=== PATIENT | female | born 1995 | race African-American/Black ===

== ENCOUNTER 2017-11-03 09:01 | Emergency (ER) | payer OTHER ==
[~2017-11-03] VITALS: Ht 167.6 cm; Wt 93.8 kg
[2017-11-03 09:39] LABS: CLARITY URINE CLOUDY (CLEAR); COLOR URINE DARK YELLOW (YELLOW); KETONES URINE NEGATIVE (NEGATIVE); LEUKOCYTE ESTERASE URINE 2+ (NEGATIVE); NITRITE URINE NEGATIVE (NEGATIVE); OCCULT BLOOD URINE 1+ (NEGATIVE); PROTEIN URINE TRACE (NEGATIVE); SPECIFIC GRAVITY URINE 1.031 (1.005-1.030)
[2017-11-03] MEDS ORDERED: KETOROLAC 30MG/ML VIAL IV STA (09:57)
[2017-11-03] MEDS ORDERED: SODIUM CHLORIDE 0.9% 1,000 ML IV ONE (09:57)
[2017-11-03 10:33] LABS: HEMATOCRIT. 33.8 % (36.0-48.0); MEAN CORPUSCULAR HEMOGLOBIN 24.1 pg (28.0-32.0); MEAN CORPUSCULAR VOLUME 73.8 fL (81.0-99.0); MEAN PLATELET VOLUME 8.5 fl (7.4-10.4); PLATELET 213 x1000/uL (130-400); RED BLOOD CELL COUNT 4.58 mill/uL (4.2-5.4); RED CELL DISTRIBUTION WIDTH 16.3 % (11.6-14.6)
[2017-11-03 10:38] LABS: CHLORIDE 104 mEq/L (98-107); INR 1.1; PROTHROMBIN TIME 11.6 sec (9.4-11.6)
[2017-11-03 11:03] LABS: PLATELET ESTIMATE NORMAL
[2017-11-03 14:40] VITALS: BP 110/67
== END 2017-11-03 14:43 | disposition home or self-care (01) ==
LOC: ER 09:01
DX: N39.0 Urinary tract infection, site not specified (principal); N83.209 Unspecified ovarian cyst, unspecified side; K21.9 Gastro-esophageal reflux disease without esophagitis; K59.00 Constipation, unspecified
CPT/HCPCS: 36415; 74176; 80053; 81003; 81025; 83690; 85025; 85610; 87086; 96361; 96374; 99285; J1885; J7030; Z7610

== ENCOUNTER 2018-07-02 15:36 | Emergency (ER) | payer OTHER ==
[~2018-07-02] VITALS: Ht 167.6 cm; Wt 97.0 kg
[2018-07-02] MEDS ORDERED: IBUPROFEN 600MG TABLET PO ONE (18:00)
[2018-07-02] MEDS ORDERED: ONDANSETRON 4MG ODT PO ONE (18:00)
[2018-07-02 20:22] VITALS: BP 117/66
== END 2018-07-02 20:25 | disposition home or self-care (01) ==
LOC: ER 15:36
DX: B34.9 Viral infection, unspecified (principal); R11.10 Vomiting, unspecified
CPT/HCPCS: 87804; 99283; Q0162

== ENCOUNTER 2018-11-23 07:20 | Emergency (ER) | payer OTHER ==
[~2018-11-23] VITALS: Ht 167.6 cm; Wt 100.0 kg
[2018-11-23] MEDS ORDERED: IBUPROFEN 600MG TABLET PO ONE (08:30)
[2018-11-23 10:42] VITALS: BP 125/75
== END 2018-11-23 10:46 | disposition home or self-care (01) ==
LOC: ER 07:58
DX: S06.0X1A Concussion with loss of consciousness of 30 minutes or less, initial encounter (principal); W10.8XXA Fall (on) (from) other stairs and steps, initial encounter; Y93.89 Activity, other specified; Y92.018 Other place in single-family (private) house as the place of occurrence of the external cause
CPT/HCPCS: 81025; 99284

== ENCOUNTER 2019-01-19 14:22 | Emergency (ER) | payer OTHER ==
[~2019-01-19] VITALS: Ht 162.6 cm; Wt 100.0 kg
[2019-01-19] MEDS ORDERED: SODIUM CHLORIDE 0.9% 1,000 ML IV ONE (17:04)
[2019-01-19] MEDS ORDERED: MAGNESIUM HYDROXIDE 400MG/5ML 30ML UDC PO ONE (17:15)
[2019-01-19] MEDS ORDERED: LACTULOSE 20G/30ML UDC PO ONE (17:15)
[2019-01-19] MEDS ORDERED: MAGNESIUM CITRATE 300ML SOLUTION PO ONE (17:15)
[2019-01-19] MEDS ORDERED: MINERAL OIL 30ML BOTTLE PO ONE (17:15)
[2019-01-19 17:26] LABS: BASOPHILS % 0.4 % (0.0-2.0); EOSINOPHILS % 0.5 % (0.0-5.0); HEMATOCRIT. 33.4 % (36.0-48.0); LYMPHOCYTES % 33.2 % (20.0-50.0); MEAN CORPUSCULAR HEMOGLOBIN 24.1 pg (28.0-32.0); MEAN PLATELET VOLUME 8.3 fl (7.4-10.4); MONOCYTES % 8.9 % (2.0-8.0); PLATELET 223 x1000/uL (130-400); RED BLOOD CELL COUNT 4.58 mill/uL (4.2-5.4); RED CELL DISTRIBUTION WIDTH 17.9 % (11.6-14.6)
[2019-01-19 17:33] LABS: CHLORIDE 107 mEq/L (98-107)
[2019-01-19 17:59] LABS: CLARITY URINE CLOUDY (CLEAR); COLOR URINE YELLOW (YELLOW); KETONES URINE TRACE (NEGATIVE); LEUKOCYTE ESTERASE URINE 1+ (NEGATIVE); NITRITE URINE NEGATIVE (NEGATIVE); OCCULT BLOOD URINE 3+ (NEGATIVE); PROTEIN URINE TRACE (NEGATIVE); SPECIFIC GRAVITY URINE 1.036 (1.005-1.030); UROBILINOGEN URINE 0.2 E.U./dL (0.2-1.0)
[2019-01-19 20:46] VITALS: BP 125/81
== END 2019-01-19 20:47 | disposition home or self-care (01) ==
LOC: ER 14:22
DX: N83.209 Unspecified ovarian cyst, unspecified side (principal); R10.33 Periumbilical pain
CPT/HCPCS: 36415; 74176; 80053; 81003; 81025; 83690; 85025; 99284; J7030

== ENCOUNTER 2019-04-23 20:02 | Emergency (ER) | payer OTHER ==
[~2019-04-23] VITALS: Ht 167.6 cm; Wt 99.0 kg
[2019-04-23 20:41] VITALS: BP 123/76
[2019-04-23 21:30] LABS: COLOR URINE YELLOW (YELLOW); KETONES URINE TRACE (NEGATIVE); LEUKOCYTE ESTERASE URINE 1+ (NEGATIVE); NITRITE URINE NEGATIVE (NEGATIVE); OCCULT BLOOD URINE NEGATIVE (NEGATIVE); PROTEIN URINE TRACE (NEGATIVE); SPECIFIC GRAVITY URINE 1.038 (1.005-1.030)
[2019-04-23 21:33] LABS: CLARITY URINE SLIGHTLY HAZY (CLEAR)
== END 2019-04-23 23:33 | disposition left against medical advice (07) ==
LOC: ER 23:31
DX: Z53.21 Procedure and treatment not carried out due to patient leaving prior to being seen by health care provider (principal)
CPT/HCPCS: 81003; 81025

== ENCOUNTER 2019-09-06 18:53 | Emergency (ER) | payer OTHER ==
[~2019-09-06] VITALS: Ht 167.6 cm; Wt 95.2 kg
[2019-09-06] MEDS ORDERED: LIDOCAINE HCL 1%/EPI 1:200,000 30 ML VIAL MC ONE (20:15)
[2019-09-06] MEDS ORDERED: LIDOCAINE HCL 1% 20ML VIAL (Pyxis) INJ INFIL ONE (20:45)
[2019-09-06] MEDS ORDERED: LIDOCAINE HCL/EPINEPHRINE 1%-EPI 1:100,000 20 ML VIAL MC NR (20:45)
[2019-09-06 23:09] VITALS: BP 120/85
== END 2019-09-06 23:10 | disposition home or self-care (01) ==
LOC: ER 18:53
DX: L03.011 Cellulitis of right finger (principal)
CPT/HCPCS: 99283; J3490

== ENCOUNTER 2019-09-14 09:02 | Emergency (ER) | payer MEDICAID, OTHER ==
[~2019-09-14] VITALS: Ht 167.6 cm; Wt 94.0 kg
[2019-09-14 11:41] VITALS: BP 126/69
== END 2019-09-14 11:43 | disposition home or self-care (01) ==
LOC: ER 09:02
DX: L03.114 Cellulitis of left upper limb (principal); Z98.890 Other specified postprocedural states
CPT/HCPCS: 99283